=== PATIENT | male | born 1995 | race Caucasian/White ===

== ENCOUNTER 2017-06-18 11:19 | Emergency (ER) | payer OTHER ==
[2017-06-18] MEDS ORDERED: Famotidine 20 MG/2 ML SDV IVPUSH ONE (12:02)
[2017-06-18] MEDS ORDERED: Alum Hydrox/Mag Hydrox/Simeth 30 ML, Lidocaine 2% 15 ML PO ONE ×2 (12:02)
[2017-06-18] MEDS ORDERED: Sodium Chloride 0.9% 10 ML Syringe FLUSH PRN (12:02)
[2017-06-18] MEDS ORDERED: Aluminum Hydroxide/Magnesium Hydroxide/Simethicone Susp 30 ML Cup ONE (12:23)
[2017-06-18] MEDS ORDERED: Ketorolac 15 MG/ML SDV IVPUSH ONE (13:49)
--- NOTE | 2017-06-18 15:05 | EDM.PDOC ---
ED HPI GENERAL MEDICAL PROBLEM - General Chief Complaint: Abdominal Pain Stated Complaint: ABDOMINAL PAIN Time Seen by Provider: 06/18/17 11:45 Source of Information: Reports: Patient, Old Records History Limitations: Reports: No Limitations - History of Present Illness INITIAL COMMENTS - FREE TEXT/NARRATIVE: 21-year-old male presents for evaluation treatment of epigastric pain. Reports epigastric pain began 2 days ago. Reports that this has been a chronic problem for him on and off. Never had an EGD but has had a colonoscopy. Reports that he has been diagnosed with colitis previously. Not currently on any medications. He is supposed to be on a PPI for his epigastric discomfort when it acts up. States she took one on Monday but did not notice any relief. Reports a sharp, stabbing pain in the epigastric area. Reports associated symptoms of decreased appetite. No nausea, vomiting, diarrhea, constipation, melena or hematochezia. epigastric Pain Score (Numeric/FACES): 5 - Related Data Allergies Allergy/AdvReac Type Severity Reaction Status Date / Time No Known Allergies Allergy Verified 06/18/17 11:30 Home Meds: Home Meds Metoclopramide [Reglan] 10 mg PO TID 06/18/17 [History] Naproxen [Naproxen] 1 tab PO ASDIRECTED PRN 06/18/17 [History] Omeprazole Magnesium [Prilosec Otc] 20 mg PO DAILY 06/18/17 [History] SUMAtriptan Succinate [Imitrex] 100 mg PO ASDIRECTED PRN 06/18/17 [History] Past Medical History HEENT History: Reports: Impaired Vision Gastrointestinal History: Reports: Gastritis, GERD Neurological History: Reports: Migraines - Past Surgical History HEENT Surgical History: Reports: Tonsillectomy GI Surgical History: Reports: Colonoscopy Social & Family History - Family History Family Medical History: Noncontributory - Tobacco Use Smoking Status *Q: Current Some Day Smoker Years of Tobacco use: 2 Packs/Tins Daily: 0.2 - Caffeine Use Caffeine Use: Reports: Coffee - Recreational Drug Use Recreational Drug Use: No ED ROS GENERAL - Review of Systems Review Of Systems: See Below Constitutional: Denies: Fever GI/Abdominal: Reports: Abdominal Pain (epigastric). Denies: Constipation, Diarrhea, Hematochezia, Melena, Nausea, Vomiting ED EXAM, GI/ABD - Physical Exam Exam: See Below Exam Limited By: No Limitations General Appearance: Alert, WD/WN, No Apparent Distress Respiratory/Chest: No Respiratory Distress, Lungs Clear, Normal Breath Sounds Cardiovascular: Normal Peripheral Pulses, Regular Rate, Rhythm, No Murmur GI/Abdominal Exam: Normal Bowel Sounds, Soft, Tender (epigastric), Other ( negative jaramillo's sign) Neurological: Alert, Oriented, Normal Cognition Psychiatric: Normal Affect, Normal Mood Skin Exam: Warm, Dry, Normal Color Course - Vital Signs Last Recorded V/S: Last Vital Signs Temp 37.7 C 06/18/17 15:30 Pulse 58 L 06/18/17 15:30 Resp 18 06/18/17 11:26 BP 124/78 06/18/17 15:30 Pulse Ox 98 06/18/17 15:30 - Orders/Labs/Meds Labs: Laboratory Tests 06/18/17 06/18/17 Range/Units 12:10 12:10 WBC 4.42 (4.23-9.07) K/mm3 RBC 5.23 (4.63-6.08) M/mm3 Hgb 16.1 (13.7-17.5) gm/L Hct 45.4 (40.1-51.0) % MCV 86.8 (79.0-92.2) fl MCH 30.8 (25.7-32.2) pg MCHC 35.5 (32.2-35.5) g/dl RDW Std Deviation 40.1 (35.1-43.9) fL Plt Count 272 (163-337) K/mm3 MPV 9.3 L (9.4-12.3) fl Neutrophils % (Manual) 41 (40-60) % Band Neutrophils % 0 (0-10) % Lymphocytes % (Manual) 49 H (20-40) % Atypical Lymphs % 0 % Monocytes % (Manual) 5 (2-10) % Eosinophils % (Manual) 5 (0.8-7.0) % Basophils % (Manual) 0 L (0.2-1.2) Platelet Estimate Adequate RBC Morph Comment Normal Sodium 141 (136-145) mEq/L Potassium 3.8 (3.5-5.1) mEq/L Chloride 105 (98-107) mEq/L Carbon Dioxide 29 (21-32) mEq/L Anion Gap 10.8 (5-15) BUN 14 (7-18) mg/dL Creatinine 1.1 (0.7-1.3) mg/dL Est Cr Clr Drug Dosing 114.09 mL/min Estimated GFR (MDRD) > 60 (>60) mL/min BUN/Creatinine Ratio 12.7 L (14-18) Glucose 90 (74-106) mg/dL Calcium 9.3 (8.5-10.1) mg/dL Total Bilirubin 1.0 (0.2-1.0) mg/dL GGT 111 H (15-85) U/L AST 25 (15-37) U/L ALT 27 (16-63) U/L Alkaline Phosphatase 68 (46-116) U/L C-Reactive Protein 2.0 H* (<1.0) mg/dL Total Protein 7.5 (6.4-8.2) g/dl Albumin 4.1 (3.4-5.0) g/dl Globulin 3.4 gm/dL Albumin/Globulin Ratio 1.2 (1-2) Lipase 115 (73-393) U/L Meds: Medications Discontinued Medications Generic Name Dose Route Start Last Admin Trade Name Freq PRN Reason Stop Dose Admin Al Hydroxide/Mg Hydroxide Confirm 06/18/17 12:23 06/18/17 12:25 Mag-Al Plus Administered 06/18/17 12:24 Not Given Dose 30 ml .ROUTE .STK-MED ONE Al Hydroxide/Mg Hydroxide 30 0 ml 06/18/17 12:02 06/18/17 12:22 ml/ Lidocaine HCl 15 ml PO 06/18/17 12:03 45 ml ONETIME ONE Administration Famotidine 20 mg 06/18/17 12:02 06/18/17 12:24 Pepcid IVPUSH 06/18/17 12:03 20 mg ONETIME ONE Administration Ketorolac Tromethamine 15 mg 06/18/17 13:49 06/18/17 14:24 Toradol IVPUSH 06/18/17 13:50 15 mg ONETIME ONE Administration Sodium Chloride 10 ml 06/18/17 12:02 06/18/17 14:26 Saline Flush FLUSH 10 ml ASDIRECTED PRN Administration Keep Vein Open - Re-Assessments/Exams Free Text/Narrative Re-Assessment/Exam: 06/18/17 13:51 Continues to have pain despite the IV Pepcid and GI cocktail. I will order him Toradol IV. At this point we are very busy and I will review the labs with him shortly. 06/18/17 15:12 I reviewed the labs with the patient. I feel this is likely gastritis. Also could be his gallbladder. I reviewed his notes from his most recent clinic visits. Indicated that if his symptoms do not improve with a PPI and ultrasound would be ordered. i feel this is appropriate. I will have him restart his PPI and follow up with his primary care provider. He will likely an ultrasound further evaluate his gallbladder if his symptoms persist. Discharge instructions as documented. Departure - Departure Time of Disposition: 15:01 Disposition: Home, Self-Care 01 Condition: Fair Clinical Impression: Gastritis - Discharge Information Instructions: Gastritis, Adult, [id number] Referrals: Maria Eugenia Schmidt PA-C [Primary Care Provider] - Forms: ED Department Discharge Additional Instructions: Restart the Prilosec and take as prescribed. Follow-up you with your primary care provider this week. Recommend discussing an ultrasound of the gallbladder few symptoms are not improved. Please return to the ER if your symptoms change or worsen.
[2017-06-18 19:12] VITALS: BP 124/78
== END 2017-06-18 15:35 | disposition home or self-care (01) ==
LOC: JD.ED 11:19
DX: K29.70 Gastritis, unspecified, without bleeding (principal); K21.9 Gastro-esophageal reflux disease without esophagitis; F17.210 Nicotine dependence, cigarettes, uncomplicated; Z98.890 Other specified postprocedural states; Z79.899 Other long term (current) drug therapy
CPT/HCPCS: 36415; 80053; 82977; 83690; 85025; 86140; 96374; 96375; 99284; A9270; J1885; J7050; 99283

== ENCOUNTER 2018-04-23 08:47 | Emergency (ER) | payer OTHER ==
[2018-04-23 09:04] VITALS: BP 132/73
[2018-04-23] MEDS ORDERED: Acetaminophen/HYDROcodone 325-5 MG Tab PO ONE (09:50)
--- NOTE | 2018-04-23 09:56 | EDM.PDOC ---
ED HPI GENERAL MEDICAL PROBLEM - General Chief Complaint: Back Pain or Injury Stated Complaint: BACK PAIN AND DIZZY Time Seen by Provider: 04/23/18 09:08 Source of Information: Reports: Patient History Limitations: Reports: No Limitations - History of Present Illness INITIAL COMMENTS - FREE TEXT/NARRATIVE: The patient presents with chronic low back pain. He has been seeing Dr Turner and Dr Roth for the back pain. He has a bulging disc. He has tried injections but that did not help. His pain flared up on Monday. He does not remember hurting his back by lifting twisting or falling. He has no numbness or weakness. He did have some loose stools lately. He is going to see Dr Leon. He also says he felt nauseated and lightheaded earlier. Onset: Gradual Duration: Day(s): (4) Location: Reports: Back Quality: Reports: Sharp Severity: Severe Improves with: Reports: Immobilization Worsens with: Reports: Movement Associated Symptoms: Reports: No Other Symptoms Lower Back Pain Score (Numeric/FACES): 8 - Related Data Allergies Allergy/AdvReac Type Severity Reaction Status Date / Time No Known Allergies Allergy Verified 04/23/18 08:54 Home Meds: Home Meds Metoclopramide [Reglan] 10 mg PO TID 06/18/17 [History] Naproxen 1 tab PO ASDIRECTED PRN 06/18/17 [History] Omeprazole Magnesium [Prilosec Otc] 20 mg PO DAILY 06/18/17 [History] SUMAtriptan Succinate [Imitrex] 100 mg PO ASDIRECTED PRN 06/18/17 [History] Cyclobenzaprine [Flexeril] 10 mg PO TID PRN #20 tab 04/23/18 [Rx] Escitalopram [Lexapro] 20 mg PO DAILY 04/23/18 [History] Famotidine 20 mg PO DAILY 04/23/18 [History] Hydrocodone/Acetaminophen [Hydrocodon-Acetaminophen 5-325] 1 - 2 each PO Q6HR PRN #20 tablet 04/23/18 [Rx] busPIRone [Buspar] 15 mg PO DAILY 04/23/18 [History] Past Medical History HEENT History: Reports: Impaired Vision Gastrointestinal History: Reports: Gastritis, GERD Musculoskeletal History: Reports: Back Pain, Chronic Neurological History: Reports: Migraines - Past Surgical History HEENT Surgical History: Reports: Tonsillectomy GI Surgical History: Reports: Colonoscopy Social & Family History - Family History Family Medical History: Noncontributory Musculoskeletal: Reports: Back pain, Chronic Neurological: Reports: None Psychiatric: Reports: None - Tobacco Use Smoking Status *Q: Current Every Day Smoker Years of Tobacco use: 4 Packs/Tins Daily: 0.5 - Caffeine Use Caffeine Use: Reports: Coffee - Recreational Drug Use Recreational Drug Use: No ED ROS GENERAL - Review of Systems Review Of Systems: See Below Constitutional: Reports: No Symptoms HEENT: Reports: No Symptoms Respiratory: Reports: No Symptoms Cardiovascular: Reports: No Symptoms Endocrine: Reports: No Symptoms GI/Abdominal: Reports: No Symptoms : Reports: No Symptoms Musculoskeletal: Reports: Back Pain ED EXAM,LOWER BACK PAIN/INJURY - Physical Exam Exam: See Below Exam Limited By: No Limitations General Appearance: Alert, No Apparent Distress Ears: Normal External Exam Nose: Normal Inspection Head: Atraumatic, Normocephalic Neck: Normal Inspection Respiratory/Chest: No Respiratory Distress, Lungs Clear, Normal Breath Sounds Cardiovascular: Regular Rate, Rhythm, No Edema, No Murmur GI/Abdominal: Soft, Non-Tender, No Organomegaly, No Mass Back Exam: Other (Pain upon palpation to the left and right low back. The pain shots down his legs.) Extremities: Normal Inspection Neurological: Alert, No Motor/Sensory Deficits, Oriented x 3 Course - Vital Signs Last Recorded V/S: Last Vital Signs Temp 98.1 F 04/23/18 08:58 Pulse 80 04/23/18 08:58 Resp 18 04/23/18 08:58 BP 132/73 04/23/18 08:58 Pulse Ox 100 04/23/18 08:58 Orthostatic Blood Pressure [ 128/81 Standing] Orthostatic Blood Pressure [ 130/73 Sitting] Orthostatic Blood Pressure [ 132/73 Supine] - Orders/Labs/Meds Meds: Medications Discontinued Medications Generic Name Dose Route Start Last Admin Trade Name Freq PRN Reason Stop Dose Admin Hydrocodone Bitart/Acetaminophen 2 tab 04/23/18 09:50 [place] 325-5 Mg PO 04/23/18 09:51 ONETIME ONE - Re-Assessments/Exams Free Text/Narrative Re-Assessment/Exam: 04/23/18 09:55 I ordered a couple hydrocodone. I will need to get him on something for pain. Departure - Departure Time of Disposition: 10:00 Disposition: Home, Self-Care 01 Condition: Good Clinical Impression: Chronic low back pain Qualifiers: Back pain laterality: bilateral Sciatica presence: with sciatica Sciatica laterality: bilateral sciatica Qualified Code(s): M54.42 - Lumbago with sciatica , left side; M54.41 - Lumbago with sciatica, right side; G89.29 - Other chronic pain - Discharge Information *PRESCRIPTION DRUG MONITORING PROGRAM REVIEWED*: Not Applicable *COPY OF PRESCRIPTION DRUG MONITORING REPORT IN PATIENT EDWARDO: Not Applicable Prescriptions: Hydrocodone/Acetaminophen [Hydrocodon-Acetaminophen 5-325] 1 - 2 each PO Q6HR PRN #20 tablet PRN Reason: Pain Cyclobenzaprine [Flexeril] 10 mg PO TID PRN #20 tab PRN Reason: Pain Referrals: Angela Bustos PA-C [Primary Care Provider] - 1 Week Additional Instructions: Take the flexeril and hydrocodone for pain. Follow up with Dr Leon. Please return if you are worse.
== END 2018-04-23 10:10 | disposition home or self-care (01) ==
LOC: JD.ED 08:47
DX: M54.42 Lumbago with sciatica, left side (principal); M54.41 Lumbago with sciatica, right side; G89.29 Other chronic pain; K21.9 Gastro-esophageal reflux disease without esophagitis; F17.210 Nicotine dependence, cigarettes, uncomplicated; Z79.899 Other long term (current) drug therapy
CPT/HCPCS: 99283; A9270